=== PATIENT | female | born 1985 | race Caucasian/White ===

== ENCOUNTER 2020-08-14 07:14 | Day surgery (SDC) | payer OTHER ==
[~2020-08-14] VITALS: Ht 175.3 cm; Wt 91.1 kg
[~2020-08-14 07:14] MED LIST: ALLE180T33 PO; MICR1TAB18 PO; NAPR-849 PO; NS 1,000 ML IV ONE; VITMTA PO
--- NOTE | 2020-08-14 09:42 | ROOR ---
Patient Name: Nichelle Cummings Procedure Date: 08/14/2020 9:16 AM Date of : 1985 Age: 35 Room: [facility] Gender: Female Note Status: Finalized Procedure: Total Colonoscopy to Cecum Indications: Lower abdominal pain Providers: Aman Deluca MD Referring MD: RYAN ROSAS MD Requesting Provider: Medicines: Monitored Anesthesia Care Complications: No immediate complications. Procedure: Pre-Anesthesia Assessment: - The heart rate, respiratory rate, oxygen saturations, blood pressure, adequacy of pulmonary ventilation, and response to care were monitored throughout the procedure. The Colonoscope was introduced through the anus and advanced to the cecum, identified by appendiceal orifice and ileocecal valve. The colonoscopy was performed without difficulty. The patient tolerated the procedure well. The quality of the bowel preparation was excellent. Findings: The perianal and digital rectal examinations were normal. No other significant abnormalities were identified in a careful examination of the remainder of the colon. The exam was otherwise without abnormality on direct and retroflexion views. Impression: - The examination was otherwise normal on direct and retroflexion views. - No specimens collected. - The exam was otherwise normal to the cecum. Recommendation: - Patient has a contact number available for emergencies. The signs and symptoms of potential delayed complications were discussed with the patient. Return to normal activities tomorrow. Written discharge instructions were provided to the patient. - High fiber diet. - Discharge patient to home. - Continue present medications. - Repeat colonoscopy at age 49 for screening purposes. - Return to referring physician. - The findings and recommendations were discussed with the patient. Procedure Code(s): --- Professional --- 80327, Colonoscopy, flexible; diagnostic, including collection of specimen(s) by brushing or washing, when performed (separate procedure) Diagnosis Code(s): --- Professional --- R10.30, Lower abdominal pain, unspecified CPT copyright 2019 [employer]. All rights reserved. The codes documented in this report are preliminary and upon surgical coder review may be revised to meet current compliance requirements. Aman Deluca MD Aman Deluca MD 08/14/2020 9:41:43 AM Electronically signed by Aman Deluca MD Number of Addenda: 0 Note Initiated On: 08/14/2020 9:16 AM Estimated Blood Loss: Estimated blood loss: none.
[2020-08-14] MEDS ORDERED: propofoL 200 MG/20 ML VIAL As Ordered ONE (09:53)
[2020-08-14 10:00] VITALS: BP 131/92
== END 2020-08-14 10:12 | disposition home or self-care (01) ==
LOC: M OPP 07:14
PROVIDERS: ATTEND Internal Medicine Gastroenterology
DX: R10.30 Lower abdominal pain, unspecified (principal); Z88.2 Allergy status to sulfonamides; Z79.899 Other long term (current) drug therapy

== ENCOUNTER 2020-10-20 06:12 | Day surgery (SDC) | payer OTHER ==
[~2020-10-20] VITALS: Ht 175.3 cm; Wt 93.4 kg
[~2020-10-20 06:12] MED LIST changes: +LR 1,000 ML IV ONE; -NS 1,000 ML IV ONE
[2020-10-20] MEDS ORDERED: ONDANSETRON 4MG/2ML VIAL As Ordered ONE ×2 (06:35→09:01)
[2020-10-20] MEDS ORDERED: ROCURONIUM BROMIDE 50 MG/5 ML VIAL As Ordered ONE ×2 (06:35→08:27)
[2020-10-20] MEDS ORDERED: propofoL 200 MG/20 ML VIAL As Ordered ONE (06:35)
[2020-10-20] MEDS ORDERED: LIDOCAINE 2% 100MG/5ML SDV (FOR ANES.) As Ordered ONE (06:35)
[2020-10-20] MEDS ORDERED: ACETAMINOPHEN 1000MG 100ML IV BTL (OFIRMEV) (J0131 PER 10MG) As Ordered ONE (06:39)
[2020-10-20] MEDS ORDERED: MIDAZOLAM INJ 2MG/2ML VIAL (J2250 PER 1MG) As Ordered ONE (06:40)
[2020-10-20] MEDS ORDERED: fentaNYL 250 MCG/5 ML INJECTION (J3010) As Ordered ONE (06:40)
[2020-10-20 06:45] LABS: HEMOGLOBIN 13.6 g/dl (12.0-15.5); MEAN CORPUSCULAR HGB CONC 32.4 g/dl (32.0-36.5); MEAN CORPUSCULAR VOLUME 89.6 fl (80.0-96.0); PLATELET COUNT, AUTOMATED 279 10^3/uL (150-450); RED BLOOD COUNT 4.69 10^6/uL (4.00-5.40)
[2020-10-20] MEDS ORDERED: dexameTHASONE 4 MG/ML 1ML VIAL (J1100 PER 1MG) As Ordered ONE (06:50)
[2020-10-20] MEDS ORDERED: BUPIVACAINE HCL 0.5% 30 ML VIAL As Ordered ONE (07:12)
[2020-10-20 07:14] LABS: HCG, SERUM QUALITATIVE NEGATIVE (NEGATIVE)
[2020-10-20] MEDS ORDERED: SUGAMMADEX SODIUM 500 MG/5 ML VIAL (BRIDION) As Ordered ONE (08:00)
[2020-10-20] MEDS ORDERED: KETOROLAC 60MG 2ML VIAL As Ordered ONE (08:23)
[2020-10-20] MEDS ORDERED: SILVER NITRATE APPLICATOR As Ordered ONE (08:25)
[2020-10-20] MEDS ORDERED: fentaNYL 100 MCG/2 ML INJECTION (J3010) As Ordered ONE ×2 (08:39→09:01)
[2020-10-20] MEDS: fentaNYL 100 MCG/2 ML INJECTION (J3010) IV PRN ×4 (09:09→09:40)
[2020-10-20] MEDS ORDERED: LR 1,000 ML IV SCH (09:10)
[2020-10-20] MEDS ORDERED: KETOROLAC 30 MG/ML 1ML VIAL IV PRN (09:10)
[2020-10-20] MEDS ORDERED: ONDANSETRON 4MG/2ML VIAL IV PRN (09:10)
[2020-10-20] MEDS: oxyCODONE 5MG TAB PO PRN ×2 (09:12→09:41)
--- NOTE | 2020-10-20 11:47 | RO ---
OPERATIVE NOTE DATE OF OPERATION: 10/20/2020 PREOPERATIVE DIAGNOSIS: Chronic pelvic pain. POSTOPERATIVE DIAGNOSIS: Chronic pelvic pain. PROCEDURE: Diagnostic laparoscopy. SURGEON: Ramon Hoang DO RESIDENTIAL ROOFER: Dr. Flores ANESTHESIA: General. IV FLUIDS: 1500 mL LR. URINE OUTPUT: 300 mL via Martin catheter. EBL: 2 mL. ANTIBIOTICS: None indicated. COMPLICATIONS: None. OPERATIVE FINDINGS: Normal pelvis. Surgically absent left ovary and small 1 cm serosal fundal fibroid. Otherwise normal fallopian tubes bilaterally, normal uterus and no gross evidence of endometriosis. DESCRIPTION OF PROCEDURE: The risks, benefits, indications, and alternatives to the procedure were reviewed with the patient and informed consent was obtained. The patient was taken to the operating room and general anesthesia was obtained without difficulty. The patient was then placed in the lithotomy position using gel padded Marcelino stirrups. The patient's arms were then gently tucked to the sides with padding. The patient was then prepped and draped in the usual sterile fashion. A surgical time out was then performed and the patient's identity and planned procedure were verified with the operative team. A martin catheter was placed first to drain the bladder. An Kinde uterine manipulator was then placed as a means to manipulate the uterus. Gloves were then exchanged and attention was turned to the patient's abdomen where 5 mm skin incision was made in the inferior aspect of the umbilicus after injection of Marcaine. A 5 mm trocar and sleeve were then carefully introduced into the abdominal cavity under direct visualization at a 90 degree angle while tenting up the abdominal wall. Intraperitoneal placement was confirmed under direct visualization and entry pressure was noted to be less than 5 mmHg. A Pneumoperitoneum was obtained with several liters of CO2 gas. Upon entry into the peritoneal cavity structures immediately below the incision were inspected and found to be free of injury. A survey of the patient's abdomen was notable for a normal liver, normal gallbladder, and normal gastric curve. The patient's appendix could not be identified and was suspected to be retrocecal. An additional 5 mm trocar was then inserted into the left lower quadrant under direct visualization after a skin incision was made with the scalpel. A systematic examination of the pelvis was then performed. The left ovary was surgically absent. The left fallopian tube appeared normal. There was a small 1 cm serosal fundal fibroid. Otherwise, the uterus was normal. The right ovary and right fallopian tube were normal. Inspection of the anterior cul-de-sac and posterior cul-de-sac revealed no evidence of endometriosis. Inspection of the uterosacral ligaments and bilateral ovarian fossae revealed no gross evidence of endometriosis. After thorough inspection of the pelvis there was no obvious, gross evidence of endometriosis. The gas was then turned off and all CO2 was removed from the patient's abdomen. The trocars were removed under direct visualization and there was no bleeding seen from the trocar sites. The skin incisions were closed with 4-0 Monocryl suture. The suture sites were then covered with Dermabond. The uterine manipulator was then removed and hemostasis was achieved at the cervix with silver nitrate sticks. The patient's Martin catheter was removed. All instruments were then confirmed to have been removed from the vagina. At the completion of the case the sponge, instrument, and needle counts were correct x2. The patient tolerated the procedure well. She was cleansed, dried, taken out of the lithotomy position, awakened from anesthesia, and taken to the PACU in stable condition. ELLIOT
[2020-10-20 14:03] VITALS: BP 134/69
== END 2020-10-20 12:31 | disposition home or self-care (01) ==
LOC: M SDC 06:12
PROVIDERS: ATTEND Obstetrics & Gynecology
DX: D25.2 Subserosal leiomyoma of uterus (principal); R10.2 Pelvic and perineal pain; R06.83 Snoring; M70.72 Other bursitis of hip, left hip; Z88.2 Allergy status to sulfonamides; Z79.899 Other long term (current) drug therapy; Z79.4 Long term (current) use of insulin; Z79.1 Long term (current) use of non-steroidal anti-inflammatories (NSAID)
CPT/HCPCS: 36415; 49320; 84703; 85027; J0131; J1100; J1885; J2250; J2405; J3010

== ENCOUNTER 2021-07-27 06:23 | Day surgery (SDC) | payer OTHER ==
[~2021-07-27] VITALS: Ht 175.3 cm; Wt 89.9 kg
[~2021-07-27 06:23] MED LIST changes: +ACETAMINOPHEN *IV* 1,000 MG IV ONE
[2021-07-27 07:12] LABS: BLOOD UREA NITROGEN 20 MG/DL (7-18); CALCIUM LEVEL 9.2 MG/DL (8.5-10.1); CARBON DIOXIDE LEVEL 27 MEQ/L (21-32); CHLORIDE LEVEL 107 MEQ/L (98-107); CREATININE FOR GFR 0.86 MG/DL (0.55-1.30); GLOMERULAR FILTRATION RATE > 60.0 (>60); GLUCOSE, FASTING 90 MG/DL (70-100); POTASSIUM SERUM 3.8 MEQ/L (3.5-5.1); SODIUM LEVEL 141 MEQ/L (136-145)
[2021-07-27] MEDS ORDERED: dexameTHASONE 4 MG/ML 1ML VIAL (J1100 PER 1MG) As Ordered ONE (07:12)
[2021-07-27] MEDS ORDERED: fentaNYL 250 MCG/5 ML INJECTION As Ordered ONE (07:12)
[2021-07-27] MEDS ORDERED: propofoL 200 MG/20 ML VIAL As Ordered ONE (07:12)
[2021-07-27] MEDS ORDERED: LIDOCAINE 2% 100MG/5ML SDV (FOR ANES.) As Ordered ONE (07:12)
[2021-07-27] MEDS ORDERED: KETOROLAC 60MG 2ML VIAL As Ordered ONE (07:12)
[2021-07-27] MEDS ORDERED: ONDANSETRON 4MG/2ML VIAL As Ordered ONE (07:12)
[2021-07-27] MEDS ORDERED: MIDAZOLAM INJ 2MG/2ML VIAL (J2250 PER 1MG) As Ordered ONE (07:12)
[2021-07-27 07:15] LABS: HCG, SERUM QUALITATIVE NEGATIVE (NEGATIVE)
[2021-07-27] MEDS ORDERED: SILVER NITRATE APPLICATOR As Ordered ONE ×2 (07:15→09:41)
[2021-07-27] MEDS ORDERED: LIDOCAINE 1% MDV 20ML VIAL As Ordered ONE (07:15)
[2021-07-27] MEDS ORDERED: ACETAMINOPHEN 1000MG 100ML IV BTL (OFIRMEV) (J0131 PER 10MG) As Ordered ONE (07:51)
[2021-07-27] MEDS ORDERED: ePHEDrine SULFATE 25 MG/5 ML(5MG/ML) SYRINGE As Ordered ONE (07:51)
[2021-07-27] MEDS ORDERED: fentaNYL 100 MCG/2 ML INJECTION IV PRN (08:40)
[2021-07-27] MEDS ORDERED: LR 1,000 ML IV SCH (08:40)
[2021-07-27] MEDS ORDERED: ONDANSETRON 4MG/2ML VIAL IV PRN (08:40)
[2021-07-27] MEDS: oxyCODONE 5MG TAB PO PRN ×2 (08:50→09:15)
[2021-07-27] MEDS: HYDROMORPHONE HCL 0.5 MG/ 0.5 ML SYRINGE (J1170 PER 1) IV PRN ×2 (08:51→08:56)
[2021-07-27 10:25] VITALS: BP 120/78
== END 2021-07-27 11:17 | disposition home or self-care (01) ==
LOC: M SDC 06:23
PROVIDERS: ATTEND Obstetrics & Gynecology
DX: N97.9 Female infertility, unspecified (principal); R87.810 Cervical high risk human papillomavirus (HPV) DNA test positive; Z88.2 Allergy status to sulfonamides; Z79.899 Other long term (current) drug therapy
CPT/HCPCS: 36415; 58558; 80048; 84703; 85014; 85018; 86850; 86900; 86901; 88305; J0131; J1100; J1170; J1885; J2250; J2405; J3010

== ENCOUNTER → 2022-09-02 | Outpatient (CLI) | payer OTHER ==
[~2022-09-02] MED LIST changes: -ACETAMINOPHEN *IV* 1,000 MG IV ONE; -LR 1,000 ML IV ONE; -MICR1TAB18 PO; +NORE1TAB94 PO
== END ==
LOC: M RAD 08:42
PROVIDERS: ATTEND Obstetrics & Gynecology Reproductive Endocrinology
DX: Z31.83 Encounter for assisted reproductive fertility procedure cycle (principal); Z90.721 Acquired absence of ovaries, unilateral; N83.291 Other ovarian cyst, right side

== ENCOUNTER → 2024-09-12 | Outpatient (CLI) | payer OTHER | LOC: M WHC 07:59 | PROVIDERS: ATTEND Internal Medicine | DX: Z12.31 Encounter for screening mammogram for malignant neoplasm of breast (principal); R92.333 Mammographic heterogeneous density, bilateral breasts ==

== ENCOUNTER 2024-10-08 20:52 | Emergency (ER) | payer OTHER ==
[~2024-10-08] VITALS: Ht 175.3 cm; Wt 87.4 kg
[2024-10-08 21:56] LABS: BASO # 0.1 10^3/uL (0.0-0.2); BASO % 1.1 % (0.0-1.0); EOS # 0.2 10^3/uL (0.0-0.5); EOS % 2.1 % (0.0-3.0); HEMATOCRIT 40.3 % (36.0-47.0); HEMOGLOBIN 13.7 g/dl (12.0-15.5); LYMPH # 4.3 10^3/uL (1.5-5.0); LYMPH % 48.3 % (24.0-44.0); MEAN CORPUSCULAR HEMOGLOBIN 30.2 pg (27.0-33.0); MONO # 0.7 10^3/uL (0.0-0.8); MONO % 7.8 % (2.0-8.0); NEUTROPHILS # 3.6 10^3/uL (1.5-8.5); NEUTROPHILS % 40.5 % (36.0-66.0); PLATELET COUNT, AUTOMATED 279 10^3/uL (150-450); RED BLOOD COUNT 4.53 10^6/uL (4.00-5.40)
[2024-10-08 22:14] LABS: LIPASE 39 U/L (12-53)
[2024-10-08 22:16] LABS: ALKALINE PHOSPHATASE 51 U/L (35-104); ALT/SGPT 16 U/L (7.0-40); AST/SGOT 11 U/L (<34); BILIRUBIN,DIRECT 0.1 MG/DL (<0.4); BILIRUBIN,TOTAL 0.4 MG/DL (0.3-1.2); BLOOD UREA NITROGEN 19 MG/DL (9-23); CALCIUM LEVEL 9.2 MG/DL (8.5-10.1); CARBON DIOXIDE LEVEL 27 MMOL/L (20-31); CHLORIDE LEVEL 106 MMOL/L (98-107); GLOMERULAR FILTRATION RATE > 90.0 (>58); GLUCOSE, FASTING 95 MG/DL (60-100); POTASSIUM SERUM 4.1 MMOL/L (3.5-5.1); SODIUM LEVEL 141 MMOL/L (136-145); TOTAL PROTEIN 6.9 G/DL (5.7-8.2)
[2024-10-08 22:30] LABS: HCG, SERUM QUALITATIVE NEGATIVE (NEGATIVE)
[2024-10-09 01:46] LABS: KETONE, URINE AUTO RFX NEGATIVE (NEGATIVE); LEUKOCYTE ESTERASE UR AUTO RFX NEGATIVE (NEGATIVE); MUCUS, URINE RFX SMALL (NEGATIVE); NITRITE, URINE AUTO RFX NEGATIVE (NEGATIVE); RBC, URINE AUTO RFX 2 /HPF (0-3); SQUAM EPITHELIAL CELL UR AURFX 1 /HPF (0-6); WBC, URINE AUTO RFX 3 /HPF (0-3)
[2024-10-09] MEDS: ACETAMINOPHEN 500 MG TAB PO ONE (04:54)
[2024-10-09] MEDS ORDERED: ACETAMINOPHEN *IV* 1,000 MG in IV 1 EA IV ONE (05:35)
[2024-10-09] MEDS ORDERED: ISOVUE-370 76% 100ML VIAL As Ordered ONE (05:45)
[2024-10-09] MEDS: KETOROLAC 30 MG/ML 1ML VIAL IV ONE (05:47)
[2024-10-09] MEDS ORDERED: NAPR-837 PO (09:50)
[2024-10-09 10:08] VITALS: BP 116/76; TEMP 97.4; O2SAT 98
== END 2024-10-09 10:14 | disposition home or self-care (01) ==
LOC: M ED 20:52
DX: R10.2 Pelvic and perineal pain (principal); N83.291 Other ovarian cyst, right side; Z79.899 Other long term (current) drug therapy; Z88.2 Allergy status to sulfonamides
CPT/HCPCS: 74177; 76856; 80048; 80076; 81001; 83690; 84703; 85025; 93976; 96374; 99285; J1885; Q9967

== ENCOUNTER 2024-12-24 11:52 | Day surgery (SDC) | payer OTHER ==
[~2024-12-24] VITALS: Ht 175.3 cm; Wt 85.5 kg
[~2024-12-24 11:52] MED LIST changes: +ALLE180T42 PO; +MULT-90 PO; +NAPR-837 PO; +TERB250T91 PO; +TRAN650T PO
[2024-12-24] MEDS ORDERED: LR 1,000 ML IV SCH (12:05)
[2024-12-24] MEDS ORDERED: ROCURONIUM BROMIDE 50MG/5ML VIAL As Ordered ONE (12:09)
[2024-12-24] MEDS ORDERED: LIDOCAINE 2% 100 MG/5 ML SDV (FOR ANES.) As Ordered ONE (12:09)
[2024-12-24] MEDS ORDERED: MIDAZOLAM INJ 2 MG/2 ML VIAL As Ordered ONE (12:10)
[2024-12-24] MEDS: KETOROLAC 30 MG/ML 1 ML VIAL IV ONE (14:27)
[2024-12-24] MEDS: ONDANSETRON 4MG 2ML VIAL IV STA (14:42)
[2024-12-24] MEDS ORDERED: dexAMETHasone 4 MG/ML 1 ML VIAL As Ordered ONE (16:04)
[2024-12-24] MEDS ORDERED: GLYCOPYRROLATE INJ 0.2 MG/ML 2 ML VIAL As Ordered ONE (16:10)
[2024-12-24] MEDS ORDERED: HYDROmorphone HCL 2 MG/ML 1 ML VIAL As Ordered ONE (16:11)
[2024-12-24] MEDS ORDERED: ACETAMINOPHEN 1000MG/100ML IV BAG As Ordered ONE (16:13)
[2024-12-24] MEDS ORDERED: SUGAMMADEX SODIUM 200 MG/2 ML VIAL As Ordered ONE (16:26)
[2024-12-24] MEDS: DOXYCYCLINE HYCLATE 100 MG/10 ML VIAL As Ordered ONE (16:42)
[2024-12-24] MEDS: METHYLENE BLUE 0.5% (5 MG/ML) 10 ML AMP As Ordered ONE (16:45)
[2024-12-24] MEDS: SILVER NITRATE APPLICATOR (1 = QTY 10) As Ordered ONE (17:00)
[2024-12-24] MEDS: LIDOCAINE 1% SDV 30 ML VIAL As Ordered ONE (17:00)
[2024-12-24] MEDS ORDERED: HYDROMORPHONE HCL 0.5 MG/0.5 ML SYRINGE IV PRN (17:10)
[2024-12-24 18:53] VITALS: BP 118/60; TEMP 97.2; O2SAT 100
== END 2024-12-24 19:31 | disposition home or self-care (01) ==
LOC: M SDC 11:52
PROVIDERS: ATTEND Obstetrics & Gynecology
DX: N93.9 Abnormal uterine and vaginal bleeding, unspecified (principal); N94.6 Dysmenorrhea, unspecified; N80.202 Endometriosis of left fallopian tube, unspecified depth; N82.8 Other female genital tract fistulae; N70.11 Chronic salpingitis; Z90.721 Acquired absence of ovaries, unilateral; Z88.2 Allergy status to sulfonamides; Z79.899 Other long term (current) drug therapy; Z90.89 Acquired absence of other organs
CPT/HCPCS: 36415; 58558; 81025; 85014; 85018; 88305; J0131; J0665; J1100; J1171; J1271; J1596; J1885; J2250; J2405; J2765; J3010; Q9968

== ENCOUNTER → 2025-03-28 | Outpatient (CLI) | payer OTHER ==
[~2025-03-28] MED LIST changes: +NORE-23 PO; -NORE1TAB94 PO
[2025-03-28 09:11] LABS: ESTRADIOL 420.5 PG/ML; LUTEINIZING HORMONE 6.5 mIU/ML; PROGESTERONE 2.07 NG/ML
== END ==
LOC: M LAB 08:14
PROVIDERS: ATTEND Obstetrics & Gynecology Reproductive Endocrinology
DX: Z31.83 Encounter for assisted reproductive fertility procedure cycle (principal)